=== PATIENT | female | born 1975 | race African-American/Black ===

== ENCOUNTER 2017-10-16 14:59 | Emergency (ER) | payer BC, OTHER ==
--- NOTE | 2017-10-16 15:14 | PDOC ---
Rapid Medical Evaluation Medical Evaluation: 10/16/17 15:12 I have performed a brief in-person evaluation of this patient. The patient presents with a chief complaint of: "itch right arm earlier, not anymore", denies fever, chills, NVD Pertinent physical exam findings: vesicular rash to R forearm I have ordered the following: nothing The patient will proceed to the ED for further evaluation. Discharge Disposition - Diagnosis Rash - Referrals - Patient Instructions - Post Discharge Activity
[2017-10-16 15:16] VITALS: BP 143/90; PULSE 96; TEMP 97.8; BMI 42.0
[2017-10-16] MEDS ORDERED: LIDOCAINE HCL 2% JELLY (30 ML/TUBE) TP STA (16:14)
--- NOTE | 2017-10-16 16:17 | PDOC ---
History of Present Illness - General Chief Complaint: Rash Stated Complaint: RASH Time Seen by Provider: 10/16/17 15:14 History Source: Patient Exam Limitations: No Limitations - History of Present Illness Initial Comments: 10/16/17 16:17 c/o itchy rash to left wrist at work 4am today. 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 Past History - Past Medical History Allergies/Adverse Reactions: Allergies Allergy/AdvReac Type Severity Reaction Status Date / Time No Known Allergies Allergy Verified 10/16/17 15:12 Home Medications: Ambulatory Orders Hydrocortisone 1% Ointment [Hytone 1% Ointment -] 1 applic TP TID #1 tube COPD: No - Surgical History Abdominal Surgery: Yes - Suicide/Smoking/Psychosocial Hx Smoking History: Never smoked Hx Alcohol Use: Yes Drug/Substance Use Hx: No Substance Use Type: Alcohol *Physical Exam - Vital Signs Last Vital Signs Temp Pulse Resp BP Pulse Ox 97.8 F 96 H 18 143/90 99 10/16/17 15:11 10/16/17 15:11 10/16/17 15:11 10/16/17 15:11 10/16/17 15:11 - Physical Exam General Appearance: Yes: Nourished, Appropriately Dressed HEENT: positive: EOMI, GRAHAM Respiratory/Chest: positive: Lungs Clear, Normal Breath Sounds Cardiovascular: positive: Regular Rhythm, Regular Rate Extremity: positive: Normal Capillary Refill, Normal Inspection, Normal Range of Motion Integumentary: positive: Rash (right inner wirst with maculopaular 1cm raised vesicular rash) Neurologic: positive: Fully Oriented, Alert, Normal Mood/Affect, Normal Response , Motor Strength 5/5 Medical Decision Making - Medical Decision Making 10/16/17 16:18 cc: itchy not painful rash after possible insect bite at work will place viscous lido for itching will dc with hydrocortisone cream three times a day follow with your PCP return if worse *DC/Admit/Observation/Transfer Diagnosis at time of Disposition: Rash - Discharge Dispostion Disposition: HOME Condition at time of disposition: Good - Prescriptions Prescriptions: Hydrocortisone 1% Ointment [Hytone 1% Ointment -] 1 applic TP TID #1 tube - Referrals Referrals: Gogo Greer MD [Primary Care Provider] - - Patient Instructions Additional Instructions: apply the cortisone cream three times a day and keep open while at home cover at work avoid scratching cool water to help with itching you can also take benadryl at night for itching return to ER if worse - Post Discharge Activity Forms/Work/School Notes: Back to Work
== END 2017-10-16 16:38 | disposition home or self-care (01) ==
LOC: JERFT 14:59 → SUPCPDRO 14:59 → JERFT 16:38
DX: R21 Rash and other nonspecific skin eruption (principal)
CPT/HCPCS: 99281-25

== ENCOUNTER 2019-01-12 14:22 | Emergency (ER) | payer OTHER ==
[2019-01-12 14:29] VITALS: BP 147/84; PULSE 110; TEMP 98; BMI 32.0
[2019-01-12] MEDS ORDERED: KETOROLAC TROMETHAMINE 60 MG/2 ML VIAL IM ONE (14:55)
[2019-01-12] MEDS ORDERED: CYCLOBENZAPRINE HCL 10 MG TABLET (FP) PO ONE (14:56)
[2019-01-12] MEDS ORDERED: KETOROLAC TROMETHAMINE 60 MG/2 ML VIAL ONE (14:59)
[2019-01-12] MEDS ORDERED: CYCLOBENZAPRINE HCL 10 MG TABLET (FP) ONE (15:00)
--- NOTE | 2019-01-12 15:03 | PDOC ---
History of Present Illness - General Chief Complaint: Back Pain Stated Complaint: LOWER BACK PAIN Time Seen by Provider: 01/12/19 14:41 History Source: Patient - History of Present Illness Occurred: reports: other Severity: reports: severe Pain Location: reports: back Method of Injury: No: fall Past History - Past Medical History Allergies/Adverse Reactions: Allergies Allergy/AdvReac Type Severity Reaction Status Date / Time No Known Allergies Allergy Verified 01/12/19 14:26 Home Medications: Ambulatory Orders Amoxicillin - [Amoxicillin 500mg Capsule -] 500 mg PO TID 01/12/19 Cyclobenzaprine HCl [Flexeril -] 10 mg PO TID #9 tablet 01/12/19 Ibuprofen [Motrin -] 2 tab PO Q6H #30 tablet 01/12/19 COPD: No - Surgical History Abdominal Surgery: Yes - Suicide/Smoking/Psychosocial Hx Smoking History: Never smoked Hx Alcohol Use: Yes Drug/Substance Use Hx: No Substance Use Type: Alcohol Review of Systems - Review of Systems Constitutional: No: Chills, Fever ABD/GI: No: Diarrhea, Nausea, Vomiting, Abdominal cramping : No: Dysuria, Flank Pain Musculoskeletal: Yes: Back Pain Neurological: No: Numbness, Tingling, Weakness *Physical Exam - Vital Signs Last Vital Signs Temp Pulse Resp BP Pulse Ox 98 F 110 H 20 147/84 100 01/12/19 14:27 01/12/19 14:27 01/12/19 14:27 01/12/19 14:27 01/12/19 14:27 - Physical Exam General Appearance: Yes: Appropriately Dressed, Mild Distress HEENT: positive: Normal Voice Neck: positive: Supple Respiratory/Chest: negative: Respiratory Distress Gastrointestinal/Abdominal: positive: Soft. negative: Tender Musculoskeletal: positive: Normal Inspection, Vertebral Tenderness (To L paraspinal muscles of lower back). negative: CVA Tenderness Extremity: positive: Normal Inspection Integumentary: positive: Dry, Warm Neurologic: positive: Fully Oriented, Alert, Normal Mood/Affect Medical Decision Making - Medical Decision Making 01/12/19 14:59 43-year-old, morbidly obesed female, here with L lower back pain that started 6 days ago. States pain initially was mild and intermittent, now severe and constant. Pain worse with bending/movement. Taking 400 of Motrin with no relief. No lower extremity pain, weakness, sensory changes, bowel or bladder incontinence or saddle anesthesia. No abdominal pain, dysuria, hematuria, nausea, vomiting, fever or chills. No history of lower back pain. Denies any trauma and states pain started shortly after sitting in her PMD's office for 2 hrs See exam M/l MSK back pain No red flags at this time -dc w/ pain control -pmd f/u as needed *DC/Admit/Observation/Transfer Diagnosis at time of Disposition: Low back pain Qualifiers: Chronicity: acute Back pain laterality: left Sciatica presence: without sciatica Qualified Code(s): M54.5 - Low back pain - Prescriptions Prescriptions: Cyclobenzaprine HCl [Flexeril -] 10 mg PO TID #9 tablet Ibuprofen [Motrin -] 2 tab PO Q6H #30 tablet - Referrals - Patient Instructions Printed Discharge Instructions: Low Back Pain Additional Instructions: Please take medications as prescribed. If pain persists, please follow-up with your PMD for further evaluation - Post Discharge Activity Forms/Work/School Notes: Back to Work
== END 2019-01-12 15:23 | disposition home or self-care (01) ==
LOC: JERFT 14:22
PROC: 3E0233Z Introduction of Anti-inflammatory into Muscle, Percutaneous Approach (ICD-10-PCS; principal; 2019-01-12)
DX: M54.5 Low back pain (principal); E66.01 Morbid (severe) obesity due to excess calories
CPT/HCPCS: 99281-25

== ENCOUNTER 2019-01-18 09:02 | Emergency (ER) | payer OTHER ==
[2019-01-18 09:26] VITALS: BP 126/58; PULSE 98; TEMP 97.8; BMI 42.0
[2019-01-18] MEDS ORDERED: KETOROLAC TROMETHAMINE 60 MG/2 ML VIAL IM ONE (09:53)
--- NOTE | 2019-01-18 09:53 | PDOC ---
*Physical Exam - Vital Signs Last Vital Signs Temp Pulse Resp BP Pulse Ox 97.8 F 98 H 18 126/58 L 99 01/18/19 09:23 01/18/19 09:23 01/18/19 09:23 01/18/19 09:23 01/18/19 09:23 Medical Decision Making - Medical Decision Making 01/18/19 09:53 Ms Bruno is a 43 yo F who presents with a complaint of left flank pain Pt reports no significant past medical history Pt reports pain x 6 days She moved a patient and developed sharp left lower back pain. Seen for these symptoms 6 days ago, given Motrin and Flexeril Was seen by PMD who started Robaxin (+) urinary frequency, no dysuria, burning with urination, nausea or vomiting. No fevers Pt seen by Midlevel Provider under my direct supervision Ancillary studies reviewed I agree with plan as outlined by Midlevel Provider 01/18/19 11:17 Laboratory Tests 01/18/19 10:17 Urine Ketones Negative Urine Blood Negative Urine Nitrite Negative Ur Leukocyte Esterase Negative *DC/Admit/Observation/Transfer - Discharge Dispostion Condition at time of disposition: Stable - Referrals Referrals: Ezequiel Caceres MD [Primary Care Provider] - - Patient Instructions - Post Discharge Activity
[2019-01-18] MEDS ORDERED: KETOROLAC TROMETHAMINE 60 MG/2 ML VIAL ONE (09:59)
--- NOTE | 2019-01-18 10:08 | PDOC ---
History of Present Illness - General Chief Complaint: Pain, Acute Stated Complaint: PAIN Time Seen by Provider: 01/18/19 09:51 History Source: Patient Exam Limitations: Clinical Condition - History of Present Illness Initial Comments: 01/18/19 10:09 Patient with no significant past medical history present with complaint of 6 days history of left lower back pain radiating down to left groin area. 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 Patient was seen in the ED 6 days ago for symptoms and discharged home on Motrin and Flexeril muscle relaxer but reports symptoms still persist. Patient saw PCP 3 days ago and was given Robaxin muscle relaxer by report did not help with symptoms. The patient also reported urinary frequency. Denies dysuria, burning with urination, nausea or vomiting. Denies fever. Patient reported all menstrual period and finishing her menses now. Timing/Duration: other (6 days) Past History - Past Medical History Allergies/Adverse Reactions: Allergies Allergy/AdvReac Type Severity Reaction Status Date / Time No Known Allergies Allergy Verified 01/12/19 14:26 Home Medications: Ambulatory Orders Ibuprofen [Motrin -] 2 tab PO Q6H #30 tablet 01/12/19 Ketorolac Tromethamine [Toradol -] 10 mg PO Q6H PRN #28 tablet 01/18/19 Methocarbamol [Robaxin -] 750 mg PO Q8H 01/18/19 Tamsulosin HCl [Flomax] 0.4 mg PO DAILY #7 cap.er.24h 01/18/19 COPD: No - Surgical History Abdominal Surgery: Yes - Immunization History Immunization Up to Date: No - Suicide/Smoking/Psychosocial Hx Smoking History: Never smoked Have you smoked in the past 12 months: No Information on smoking cessation initiated: No Hx Alcohol Use: No Drug/Substance Use Hx: No Substance Use Type: Alcohol Review of Systems - Review of Systems Able to Perform ROS?: Yes Is the patient limited Luxembourgish proficient: No Constitutional: No: Chills, Fever, Malaise HEENTM: No: Symptoms Reported Respiratory: No: Symptoms reported Cardiac (ROS): No: Symptoms Reported ABD/GI: No: Symptoms Reported, Constipated, Diarrhea, Nausea, Vomiting, Abdominal cramping : Yes: Symptoms Reported, See HPI, Frequency, Flank Pain (left side). No: Burning, Dysuria, Discharge, Hematuria, Incontinence, Urgency Musculoskeletal: Yes: Symptoms Reported, See HPI, Back Pain (left side back), Muscle Pain (left lower back) Neurological: No: Numbness, Paresthesia, Tingling, Dizziness All Other Systems: Reviewed and Negative *Physical Exam - Vital Signs Last Vital Signs Temp Pulse Resp BP Pulse Ox 97.8 F 98 H 18 126/58 L 99 01/18/19 09:23 01/18/19 09:23 01/18/19 09:23 01/18/19 09:23 01/18/19 09:23 - Physical Exam Comments: 01/18/19 10:07 GENERAL: Well developed, well nourished. Awake and alert in mild acute distress. CARDIOVASCULAR: Regular rate and rhythm. No murmurs, rubs, or gallops. PULMONARY: No evidence of respiratory distress. Lungs clear to auscultation bilaterally. No wheezing, rales or rhonchi. ABDOMINAL: Soft. Non-tender. Non-distended. No rebound or guarding. No organomegaly. Normoactive bowel sounds MUSCULOSKELETAL : Moderate tenderness to left paravertebral muscle down to flank area of left lower lumbar spine of L2-L4 which is worse with external rotation of the hip to the right. No bony deformities . neg CVAT SKIN: Warm and dry. Normal capillary refill. No rashes. No jaundice. NEUROLOGICAL: Alert, awake, appropriate. No motor deficits in the lower extremities. Gait is normal without ataxia. PSYCHIATRIC: Cooperative. Good eye contact. Appropriate mood and affect. General Appearance: Yes: Nourished, Appropriately Dressed, Mild Distress Medical Decision Making - Medical Decision Making 01/18/19 10:12 atient with no significant past medical history present with complaint of 6 days history of left lower back pain radiating down to left groin area. 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 Patient was seen in the ED 6 days ago for symptoms and discharged home on Motrin and Flexeril muscle relaxer but reports symptoms still persist. Patient saw PCP 3 days ago and was given Robaxin muscle relaxer by report did not help with symptoms. The patient also reported urinary frequency. Denies dysuria, burning with urination, nausea or vomiting. Denies fever. Patient reported all menstrual period and finishing her menses now. Exam significant for moderate tenderness to paravertebral muscle and flank area of left normal spine of L2-L4 which is worse with external rotation of the hip to the right. No CVA tenderness on exam. Symptoms likely muscle strain versus kidney stone versus herniated disc. UA, urine culture and urine hCG labs ordered. Toradol 60 mg IM ordered for pain. Spiral CT will be ordered if negative hCG to rule out kidney stone. Reassess after lab and imaging 01/18/19 12:37 UA unremarkable. hcg neg. spiral CT shows non-obstructing 3mm stone at [facility]J. Patient report improvement in pain with Toradol. Patient stable for d/c on PO Toradol and flomax with urology follow-up *DC/Admit/Observation/Transfer Diagnosis at time of Disposition: Kidney stone on left side, Acute left flank pain - Discharge Dispostion Disposition: HOME Condition at time of disposition: Stable Decision to Admit order: No - Prescriptions Prescriptions: Ketorolac Tromethamine [Toradol -] 10 mg PO Q6H PRN #28 tablet PRN Reason: pain Tamsulosin HCl [Flomax] 0.4 mg PO DAILY #7 cap.er.24h - Referrals Referrals: Ezequiel Caceres MD [Primary Care Provider] - Nicolás Gramajo MD [Non Staff, Medical] - - Patient Instructions Printed Discharge Instructions: Kidney Stones -- Adult Additional Instructions: Your CATS scan shows non-obstructing kidney stones. Take medications as prescribed . Increase fluid intake. Follow-up with referred urologist - Post Discharge Activity
[2019-01-18 10:42] LABS: PH,URINE 8.5 (5.0-8.0); URINE APPEARANCE CLEAR; URINE BILIRUBIN NEGATIVE (NEGATIVE); URINE COLOR YELLOW; URINE GLUCOSE (UA) NEGATIVE (NEGATIVE); URINE KETONE NEGATIVE (NEGATIVE); URINE LEUK ESTERASE NEGATIVE (NEGATIVE); URINE NITRITE NEGATIVE (NEGATIVE); URINE PROTEIN NEGATIVE (NEGATIVE); URINE UROBILINOGEN 0.2 mg/dL (0.2-1.0)
[2019-01-18 11:31] LABS: HCG,QUALITATIVE URINE Negative
[2019-01-18] MEDS ORDERED: TAMSULOSIN HCL 0.4 MG CAP PO ONE (12:33)
[2019-01-18] MEDS ORDERED: TAMSULOSIN HCL 0.4 MG CAP ONE (12:41)
== END 2019-01-18 12:45 | disposition home or self-care (01) ==
LOC: JER 09:02
PROC: 3E0233Z Introduction of Anti-inflammatory into Muscle, Percutaneous Approach (ICD-10-PCS; principal; 2019-01-18)
DX: N20.0 Calculus of kidney (principal)
CPT/HCPCS: 74176-TC; 81003; 84703; 87086; 99282-25

== ENCOUNTER 2021-06-28 15:19 | Emergency (ER) | payer OTHER ==
[2021-06-28 15:42] VITALS: TEMP 98.4; BMI 42.2
[2021-06-28] MEDS ORDERED: KETOROLAC TROMETHAMINE 30 MG/1 ML VIAL IM ONE (16:57)
[2021-06-28 17:05] LABS: PH,URINE 6.5 (5.0-8.0); URINE APPEARANCE CLEAR; URINE BILIRUBIN NEGATIVE (NEGATIVE); URINE COLOR YELLOW; URINE GLUCOSE (UA) NEGATIVE (NEGATIVE); URINE KETONE NEGATIVE (NEGATIVE); URINE LEUK ESTERASE NEGATIVE (NEGATIVE); URINE NITRITE NEGATIVE (NEGATIVE); URINE PROTEIN NEGATIVE (NEGATIVE); URINE UROBILINOGEN 0.2 mg/dL (0.2-1.0)
[2021-06-28 17:21] LABS: HCG,QUALITATIVE URINE Negative
[2021-06-28] MEDS ORDERED: KETOROLAC TROMETHAMINE 30 MG/1 ML VIAL ONE (17:37)
[2021-06-28 17:44] VITALS: BP 148/78; PULSE 86
== END 2021-06-28 17:44 | disposition home or self-care (01) ==
LOC: JER 15:19
PROC: 3E0233Z Introduction of Anti-inflammatory into Muscle, Percutaneous Approach (ICD-10-PCS; principal; 2021-06-28)
DX: M54.31 Sciatica, right side (principal)
CPT/HCPCS: 81003; 84703; 87086; 99284-25

== ENCOUNTER 2022-06-26 20:38 | Emergency (ER) | payer OTHER ==
[2022-06-26 20:43] VITALS: BP 148/59; PULSE 98; RESP 18; TEMP 97.7; BMI 42.1
[2022-06-26] MEDS ORDERED: IBUPROFEN 600 MG TABLET (FP) PO ONE ×2 (21:29→21:35)
== END 2022-06-26 22:41 | disposition home or self-care (01) ==
LOC: JERFT 20:38
DX: M25.562 Pain in left knee (principal)
CPT/HCPCS: 73562-TC-LT-FY; 99283-25

== ENCOUNTER 2023-02-18 14:15 | Emergency (ER) | payer OTHER ==
[2023-02-18 14:19] VITALS: BP 125/71; PULSE 83; RESP 18; TEMP 97.1; BMI 45.3
[2023-02-18] MEDS ORDERED: METOCLOPRAMIDE HCL INJECTION 10 MG/2 ML VIAL IVPUSH ONE (15:25)
[2023-02-18] MEDS ORDERED: SODIUM CHLORIDE 0.9% 500 ML INFUS.BAG IV ONE (15:25)
[2023-02-18] MEDS ORDERED: METOCLOPRAMIDE HCL INJECTION 10 MG/2 ML VIAL ONE (15:48)
[2023-02-18 16:04] LABS: BASO % 0.6 % (0-2.0); EOS % 1.1 % (0-4.5); HEMATOCRIT 32.9 % (32.4-45.2); LYMPH % 33.3 % (8-40); MCH 30.4 pg (25.7-33.7); MCHC 33.4 g/dl (32.0-36.0); MEAN CELL VOLUME 90.7 fl (80-96); MEAN PLT VOLUME 10.4 fl (7.5-11.1); MONO % 8.4 % (3.8-10.2); NEUT % 56.6 % (42.8-82.8); PLATELET COUNT 240 10^3/uL (134-434); RBC 3.62 M/mm3 (3.60-5.2); RDW 14.4 % (11.6-15.6); WHITE BLOOD COUNT 10.1 K/mm3 (4.0-10.0)
[2023-02-18 16:21] LABS: CHLORIDE 105 mmol/L (98-107); POTASSIUM 5.4 mmol/L (3.5-5.1); SODIUM 139 mmol/L (136-145)
[2023-02-18 16:23] LABS: ANION GAP 6 MMOL/L (8-16); BLOOD UREA NITROGEN 15.3 mg/dL (7-18); CALCIUM 9.1 mg/dL (8.5-10.1); CO2 27 mmol/L (21-32); GLUCOSE,RANDOM 87 mg/dL (74-106)
[2023-02-18 16:27] LABS: CREATININE 0.6 mg/dL (0.55-1.3)
== END 2023-02-18 17:09 | disposition home or self-care (01) ==
LOC: JERFT 14:15
PROC: 3E033NZ Introduction of Analgesics, Hypnotics, Sedatives into Peripheral Vein, Percutaneous Approach (ICD-10-PCS; principal; 2023-02-18)
DX: R51.9 Headache, unspecified (principal); R42 Dizziness and giddiness; R11.0 Nausea
CPT/HCPCS: 36415; 80048; 84702; 85025; 99284-25